=== PATIENT | female | born 1990 | race Caucasian/White ===

== ENCOUNTER 2017-03-29 18:42 | Emergency (ER) | payer OTHER ==
[~2017-03-29] VITALS: Ht 160 cm; Wt 59.9 kg
[2017-03-29 18:46] VITALS: BP 111/74
== END 2017-03-29 19:24 | disposition left against medical advice (07) ==
LOC: ED 19:18
DX: R10.31 Right lower quadrant pain (principal)
CPT/HCPCS: 99281